=== PATIENT | female | born 1965 | race Caucasian/White ===

== ENCOUNTER 2024-06-12 10:21 | Emergency (ER) | payer BC, SELFPAY ==
[2024-06-12 10:22] VITALS: BP 128/96; PULSE 90; RESP 14; TEMP 36.1; O2SAT 96; BMI 32.6
--- NOTE | 2024-06-12 10:25 | ED.RN ---
I HAD TO WAIT 5 HOURS AT [facility] ON THURSDAY BEFORE THEY EVEN SAW ME.
--- NOTE | 2024-06-12 10:41 | CT_ITS ---
ACR Level 3 findings have been noted. An addendum which confirms receipt of the report will follow. HISTORY: LLQ abdominal pain, on antibiotics since for diverticulitis. TECHNIQUE: Helically acquired images were obtained of the abdomen and pelvis after the intravenous administration of 100 mL Isovue-370. A radiation dose optimization technique was used for this scan. 429 images. COMPARISON: None. FINDINGS: LOWER CHEST: Lung bases clear. 2.6 x 4.5 cm right pericardial cyst. BOWEL/PERITONEUM: Colonic diverticulosis with perisigmoid inflammation and a 5.6 x 6.4 cm air-fluid collection in the mid lower abdomen. Small bowel nondilated. Appendix not identified. LIVER: Fatty infiltration with small cysts measuring up to 1.7 cm. GALLBLADDER/BILIARY TREE: Slight gallbladder wall edema. SPLEEN: Calcified granuloma. PANCREAS/ADRENAL GLANDS/KIDNEYS: Unremarkable. VESSELS: No abdominal aortic aneurysm. PELVIC ORGANS: Mild left adnexal edema. BONES: Mild degenerative change. CT/Abdomen/Pelvis W IV Cont ONLY IMPRESSION: Sigmoid diverticulitis with localized perforation and a 6 cm diverticular abscess. Mild edema or inflammation at the adjacent left ovary. Mild gallbladder wall edema. Electronically Signed: Nancy Wilcox MD at 12:19 EDT ,
--- NOTE | 2024-06-12 10:42 | ED.VIS.GI ---
HPI HPI - GI History of Present Illness Chief Complaint: Abd Pain Informant: patient Abdominal Pain/Flank Pain Onset: Days Context: Gradual Onset Timing: Continuous Quality: Aching Location: LLQ Current Severity: Mild Maximum Severity: Moderate Worsened by: Nothing Relieved by: Nothing Nausea/Vomiting/Emesis GI Symptom: Negative for Nausea or Vomiting Diarrhea/Melena/Hematochezia GI Symptom: Positive for Diarrhea; Negative for Melena Stool Quality: Positive for Loose Severity: Mild Associated Symptoms Associated Symptoms: Negative for Dysuria, Frequency or Hematuria Narrative Narrative: 58-year-old female history of diverticulitis. Prior appendectomy and . States since Thursday she has had left lower quadrant abdominal pain. Was seen at a local emergency department did not have a CAT scan and was started on Augmentin twice a day. Also states the pain medication does not seem to be helping. Denies fever. No vomiting. No dysuria. Prior similar symptoms: Yes Recent Illness/Hospitalization: No PFSH PFSH Medical History (Updated 06/12/24 @ 11:09 by Christiano Hernandez) Diverticulitis Home Medications ?Medication ?Instructions ?Recorded ?Last Taken ?Type calcium polycarbophil 625 mg 625 mg PO TID 12/11/14 Unknown History tablet (Fiber Therapy (ca polycarbophil)) Allergy/AdvReac Type Severity Reaction Status Date / Time No Known Allergies Allergy Verified 06/12/24 10:22 Social History Smoking Status: Never smoker ROS ROS ED ROS Narrative Left lower quadrant abdominal pain. Loose stools. Constitutional Constitutional ED: Denies chills or fever(s) ENT ENT ED: Denies ear pain Cardiovascular Cardiovascular: Denies chest pain Respiratory/Chest Respiratory/Chest: Denies cough or dyspnea Gastrointestinal Gastrointestinal: Reports abdominal pain and diarrhea; Denies constipation, melena, nausea or vomiting Genitourinary Genitourinary ED: Denies dysuria or hematuria Musculoskeletal Musculoskeletal: Denies arthralgias Integumentary Denies abscess Neurologic Neurologic: Denies headache(s) Psychiatric Psychiatric: Denies anxiety or depression Endocrine Endocrinology: Denies polydipsia Hematologic/Lymphatic Hematologic/Lymphatic: Denies easy bleeding Allergic/Immunologic Allergic/Immunologic ED: Denies mouth swelling EXAM Physical Exam Const Vital Signs: 06/12/24 10:22 Temperature 97 F L Temperature Source Temporal Pulse Rate 90 Respiratory Rate 14 Blood Pressure 128/96 H Blood Pressure Mean 106 Pulse Ox 96 Oxygen Delivery Method Room Air MDM MDM MDM Narrative Medical decision making narrative: 58-year-old female left lower quadrant abdominal pain suspect diverticulitis. CAT scan labs are pending. She does not want anything for pain right now and denies any nausea. Patient did require pain medication was given morphine and Zofran. Exam unchanged. CAT scan shows perforated sigmoid diverticular lightest with an abscess. Hospitalist and general surgeon on page for admission. Patient started on IV Zosyn. General surgery to come down evaluate the patient to decide on admission here versus transfer. History & Record Review Discussion w/independent historian: Patient and Family Lab Data Attestation: I reviewed the patient's lab results. Lab results narrative: CBC shows a white count of 6. H&H 13 and 39. Platelets 216. Electrolytes show gap 4. Normal BUN 16 creatinine of 1. Glucose 118. Urinalysis shows no white cells. No nitrites. No bacteria. Labs: Laboratory Results - last 24 hr 06/12/24 06/12/24 11:08 11:15 WBC 6.4 RBC 4.45 Hgb 13.0 Hct 39.8 MCV 89.4 MCH 29.2 MCHC 32.7 RDW Std Deviation 41.6 RDW Coeff of Hu 12.7 Plt Count 216 MPV 10.1 Immature Gran % (Auto) 0.300 Neut % (Auto) 72.9 H Lymph % (Auto) 17.7 L [place] % (Auto) 8.2 Eos % (Auto) 0.6 Baso % (Auto) 0.3 Absolute Neuts (auto) 4.7 Absolute Lymphs (auto) 1.14 Nucleated RBC % 0 Sodium 138 Potassium 3.9 Chloride 105 Carbon Dioxide 29.0 Anion Gap 4 L BUN 16 Creatinine 1.07 H Estim Creat Clear Calc 80.17 Est GFR (MDRD) Af Amer 68 Est GFR (MDRD) Non-Af 56 L BUN/Creatinine Ratio 15.0 Glucose 118 H Calcium 9.2 Urine Color Yellow Urine Clarity Clear Urine pH 6.5 Ur Specific [place] 1.010 Urine Protein Negative Urine Glucose (UA) Normal Urine Ketones Negative Urine Occult Blood Negative Urine Nitrite Negative Urine Bilirubin Negative Urine Urobilinogen Normal Ur Leukocyte Esterase 25 H Urine RBC 0 SEEN Urine WBC 0 SEEN Ur Squamous Epith Cells 0-5 SEEN Urine Bacteria 0 SEEN Urine Mucus 0 SEEN Radiography Diagnostic Testing: Clinical Impression(s) from Imaging Studies Abdomen/Pelvis CT 06/12/24 10:41 IMPRESSION: Sigmoid diverticulitis with localized perforation and a 6 cm diverticular abscess. Mild edema or inflammation at the adjacent left ovary. Mild gallbladder wall edema. Electronically Signed: Nancy Wilcox MD at 12:19 EDT Reading Location ID and State: [facility] / [place] Tel , Service support , ADDENDUM: 06/12/24 1230 IMPRESSION: Sigmoid diverticulitis with localized perforation and a 6 cm diverticular abscess. Mild edema or inflammation at the adjacent left ovary. Mild gallbladder wall edema. N.B. : Francisco Javier Yeager MD, confirmed on 06/12/2024 12:23:09 (ET) that the healthcare facility has received the radiology report. Electronically Signed: Nancy Wilcox MD at 12:19 EDT , Discharge Plan Triage Chief Complaint: Abd Pain ED Provider: Francisco Javier Yeager Dx/Rx/DC Orders Prescriptions: No Action calcium polycarbophil [Fiber Therapy (ca polycarboph)] 625 MG tablet 625 mg PO TID Primary Care Provider: Kailey Beltre,Out of Referrals: Kailey Beltre,Out of [Primary Care Provider] - Print Language: Welsh
[2024-06-12 11:19] LABS: Bacteria 0 SEEN /hpf (None Seen); Mucous, Urine 0 SEEN /hpf (<or=2+); Red Blood Cells-Urine 0 SEEN /hpf (0-5); White Blood Cells 0 SEEN /hpf (0-5)
[2024-06-12 11:21] LABS: Color, Urine Yellow (Yellow); Glucose, Dipstick Normal (Normal); Ketone-Dipstick Negative (Negative); Leukocyte Esterase-Dipstick 25 /ul (Negative); Nitrite-Dipstick Negative (Negative); Occult Blood-Urine Negative /ul (Negative); Protein-Dipstick Negative (Negative); Urine Bilirubin Dipstick Negative (Negative); Urine Clarity Clear (Clear); Urine Urobilinogen Normal (Normal); Urine pH 6.5 (5.0 - 8.0)
[2024-06-12 11:21] LABS: Absolute Lymphocyte Count 1.14 X10^3/uL (0.83-4.51); Absolute Neutrophil Count 4.7 X10^3/uL (2.0-7.7); Basophil# 0.02 X10^3/uL; Basophil% 0.3 % (0-1); Eosinophil# 0.04 X10^3/uL; Eosinophils% 0.6 % (0-5); Hematocrit 39.8 % (37-47); Lymphocyte # 1.14 X10^3/ul (0.83-4.51); Lymphocyte % 17.7 % (19-41); Mean Corp Hgb Conc 32.7 g/dL (32-36); Mean Corpuscular Hgb 29.2 pg (27.0-32.0); Mean Corpuscular Volume 89.4 fL (81-99); Mean Platelet Vol. 10.1 fl (6.2-12.0); Monocyte# 0.53 X10^3/uL; Monocyte% 8.2 % (0-10); NRBC Flagged by Analyzer 0 % (0-5); Neutrophil # 4.69 X10^3/uL (2.7-7.7); Neutrophil % 72.9 % (47-70); Platelet Count 216 K/mm3 (150-450); RBC Distribution Width CV 12.7 % (11.6-14.6); RBC Distribution Width SD 41.6 fl (35.1-43.9); Red Blood Count 4.45 M/mm3 (4.2-5.4); White Blood Count 6.4 K/mm3 (4.4-11.0)
[2024-06-12 11:26] LABS: Squamous Epithelial Cells - UA 0-5 SEEN /hpf (5-10)
[2024-06-12 11:36] LABS: Anion Gap 4 (5-15); BUN 16 mg/dL (7-18); Calcium,Total 9.2 mg/dL (8.5-10.1); Chloride 105 mmol/L (98-107); Creatinine, Serum 1.07 mg/dL (0.55-1.02); EST Glomerular Filtration Rate 56 mL/min (>60); Est Glom Filt Rate - Afr Amer 68 mL/min (>60); Estimated Creatinine Clearance 80.17 ml/min; Glucose 118 mg/dL (74-106); Potassium 3.9 mmol/L (3.5-5.1); Sodium Level 138 mmol/L (136-145)
[2024-06-12] MEDS: Ondansetron 4 MG/2 ML Vial IV (12:08)
[2024-06-12] MEDS: morphine 8 MG/ML Syringe 6 MG IV (12:08)
[2024-06-12 12:22] VITALS: BP 131/83; PULSE 65; RESP 24; O2SAT 97
[2024-06-12] MEDS: Piperacil/Tazobactam 4.5 GM in 0.9% Normal Saline (100mL MB+) 100 ML IV (12:57)
--- NOTE | 2024-06-12 13:47 | CON.PCM.SX_ITS ---
Assessment & Plan Assessment/Plan (1) Diverticular disease of intestine with perforation and abscess: PLAN: The patient is a 58-year-old female who presents to the emergency department with about a 3 to 4-day history of left-sided abdominal pain. She has an extensive history of previous episodes of sigmoid diverticulitis usually treated with outpatient oral antibiotics. Patient was seen initially at an outside facility and was diagnosed with diverticulitis based on clinical grounds as no CAT scan was performed. Workup today revealed sigmoid diverticulitis with contained perforation/abscess measuring about 6 cm. She is clinically stable and white count is normal. She has no evidence to suggest acute abdomen and need for emergent surgery. Discussion was held with the patient and her as well as the ER doctor. I believe she certainly would be best served by admission for IV antibiotics and ideally percutaneous drainage by CT guidance. I am concerned about the multiple episodes of diverticulitis that she has had in the past and I suspect that any surgery that might be needed for her diverticulitis might be quite complex, and might be best served at a tertiary center with colorectal surgery resources. I did discuss this with ER physician and patient/family. We are looking into local options for transfer however I suspect that bed availability may be an issue. If this is the case, she could certainly be admitted and we can arrange for CT-guided drainage and then plan accordingly based on her clinical progress. The patient and her are agreeable with this plan. All questions and concerns were addressed. HPI Consult Data Date of Consult: 06/12/24 HPI Narrative Reason for Consultation: Sigmoid diverticulitis with abscess HPI Narrative: OTILIA SIERRA, is a 58 F who has an extensive history of multiple episodes of sigmoid diverticulitis. She states that she has had multiple episodes of sigmoid diverticulitis over the past 6 or 7 years. It sounds as though she was only hospitalized once as a result of sigmoid diverticulitis in the past however she states that she usually has at least 1-2 episodes of diverticulitis per year. These are typically treated with oral antibiotics. She states that her last colonoscopy was earlier this year. She states that she was in her usual state of health up until Thursday evening when she began developing abdominal pain. She immediately assumed this was her diverticulitis. She continued to have pain and eventually presented to [facility] emergency room where she was seen and evaluated. Her white count was normal. No CAT scan was performed at that time. She was given oral antibiotics and discharged to home. Over these past couple of days she has continued to have persistent left-sided abdominal pain without any significant relief. She denies any fevers or chills. She presented to [facility] emergency department today. She was seen evaluate by the ER staff and underwent a battery of laboratory testing. Her blood work appeared essentially normal with a normal white blood cell count. She underwent a CT scan that revealed about a 6 cm contained perforation/abscess containing air- fluid level. No other obvious areas of extraluminal air were noted. While in the emergency room she was hemodynamically stable and afebrile. A surgical consult was obtained once CT scan results were noted. I saw the patient in the emergency room. She currently rates her pain at about a 3 or 4. Again she denies fevers or chills. [facility] Medical History Diverticulitis Home Medications ?Medication ?Instructions ?Recorded ?Last Taken ?Type amoxicillin 875 mg-potassium 1 tab PO BID 06/12/24 06/12/24 History clavulanate 125 mg tablet lactobacillus combination no.4 3 3,000 mmu cells PO DAILY PRN 06/12/24 Unknown History billion cell capsule (Probiotic) [employer] omeprazole 20 mg tablet,delayed 20 mg PO DAILY PRN heartburn 06/12/24 Unknown History release polyethylene glycol 3350 17 17 g PO DAILY 06/12/24 Unknown History gram/dose oral powder (ClearLax) Allergy/AdvReac Type Severity Reaction Status Date / Time No Known Allergies Allergy Verified 06/12/24 10:22 Social History Smoking Status: Never smoker Physical Exam Const alert, oriented x3 and no apparent distress General Appearance: cooperative Nutritional Appearance: obese HEENT normocephalic Eyes PERRL and EOMs intact bilaterally Neck General: normal visual inspection Resp normal respiratory effort GI GI Narrative: Abdomen is soft and obese. Patient has moderate tenderness to palpation in the central to left lower quadrant. No rebound or guarding. No overlying skin changes. No evidence of acute abdomen Lab / Micro Data Attestation: I reviewed the patient's lab results. 06/12/24 11:08 06/12/24 11:08 Labs: Laboratory Results - last 24 hr 06/12/24 11:08: WBC 6.4, RBC 4.45, Hgb 13.0, Hct 39.8, MCV 89.4, MCH 29.2, MCHC 32.7, RDW Std Deviation 41.6, RDW Coeff of Hu 12.7, Plt Count 216, MPV 10.1, Immature Gran % (Auto) 0.300, Neut % (Auto) 72.9 H, Lymph % (Auto) 17.7 L, [place] % (Auto) 8.2, Eos % (Auto) 0.6, Baso % (Auto) 0.3, Absolute Neuts (auto) 4.7, Absolute Lymphs (auto) 1.14, Nucleated RBC % 0, Sodium 138, Potassium 3.9, Chloride 105, Carbon Dioxide 29.0, Anion Gap 4 L, BUN 16, Creatinine 1.07 H, Estim Creat Clear Calc 80.17, Est GFR (MDRD) Af Amer 68, Est GFR (MDRD) Non-Af 56 L, BUN/Creatinine Ratio 15.0, Glucose 118 H, Calcium 9.2 06/12/24 11:15: Urine Color Yellow, Urine Clarity Clear, Urine pH 6.5, Ur Specific [place] 1.010, Urine Protein Negative, Urine Glucose (UA) Normal, Urine Ketones Negative, Urine Occult Blood Negative, Urine Nitrite Negative, Urine Bilirubin Negative, Urine Urobilinogen Normal, Ur Leukocyte Esterase 25 H, Urine RBC 0 SEEN, Urine WBC 0 SEEN, Ur Squamous Epith Cells 0-5 SEEN, Urine Bacteria 0 SEEN, Urine Mucus 0 SEEN Imaging Radiology Impression Abdomen/Pelvis CT 06/12/24 10:41 IMPRESSION: Sigmoid diverticulitis with localized perforation and a 6 cm diverticular abscess. Mild edema or inflammation at the adjacent left ovary. Mild gallbladder wall edema. Electronically Signed: Nancy Wilcox MD at 12:19 EDT , ADDENDUM: 06/12/24 1230 IMPRESSION: Sigmoid diverticulitis with localized perforation and a 6 cm diverticular abscess. Mild edema or inflammation at the adjacent left ovary. Mild gallbladder wall edema. N.B. : Francisco Javier Yeager MD, confirmed on 06/12/2024 12:23:09 (ET) that the healthcare facility has received the radiology report. Electronically Signed: Nancy Wilcox MD at 12:19 EDT Reading Location ID and State: [address] [place] [address] Tel , Service support , Charges/Coding Visit Charges Inpatient E&M: 90663 Subs Hosp L3
[2024-06-12 14:00] VITALS: BP 123/72; PULSE 67; RESP 18; O2SAT 96
[2024-06-12 15:45] VITALS: BP 121/76; PULSE 67; RESP 16; TEMP 36.3; O2SAT 96
== END 2024-06-12 15:47 | disposition short-term general hospital (02) ==
PROVIDERS: Emergency Provider Emergency Medicine; Visit Provider Emergency Medicine
DX: K57.20 Diverticulitis of large intestine with perforation and abscess without bleeding (principal); K82.8 Other specified diseases of gallbladder; R19.7 Diarrhea, unspecified; Z90.49 Acquired absence of other specified parts of digestive tract
CPT/HCPCS: 74177; 80048; 81001; 85025; 96365; 96375; 99284; J7030; Q9967; A4216; J2405